=== PATIENT | female | born 1970 | race Hispanic/Latino ===

== ENCOUNTER 2023-05-18 14:26 | Emergency (ER) | payer OTHER ==
[2023-05-18] MEDS ORDERED: Ibuprofen 200 MG TAB ONE (16:50)
[2023-05-18] MEDS ORDERED: Cyclobenzaprine 10 MG TAB ONE (16:50)
== END 2023-05-18 19:04 | disposition home or self-care (01) ==
LOC: ERS 14:26
DX: S46.911A Strain of unspecified muscle, fascia and tendon at shoulder and upper arm level, right arm, initial encounter (principal); V89.2XXA Person injured in unspecified motor-vehicle accident, traffic, initial encounter
CPT/HCPCS: 71045; 93005